=== PATIENT | male | born 1950 | race Caucasian/White ===

== ENCOUNTER 2021-01-03 13:40 | Inpatient (IN) | payer OTHER, MEDICARE, BC ==
[~2021-01-03] VITALS: Ht 182.9 cm; Wt 70.5 kg
[2021-01-03 14:31] LABS: BASOPHILS % (AUTO) 0.1 % (0-1); EOSINOPHILS % (AUTO) 0.2 % (0-6); HEMOGLOBIN 16.3 g/dl (14.0-17.9); LYMPHOCYTES # (AUTO) 0.8 X10'3 (1.1-4.8); LYMPHOCYTES % (AUTO) 15.1 % (21-51); MEAN CORPUSCULAR HEMOGLOBIN 30.3 PG (27.0-31.0); MEAN CORPUSCULAR HGB CONC 34.6 g/dL (33.0-36.5); MEAN CORPUSCULAR VOLUME 87.6 FL (78-98); MONOCYTES # (AUTO) 0.7 X10'3 (0-0.9); NEUTROPHILS % (AUTO) 71.6 % (42-75); PLATELET COUNT 218 X10'3 (140-440); RED BLOOD COUNT 5.36 X10'6 (4.70-6.10); RED CELL DISTRIBUTION WIDTH 13.2 % (11.5-14.5); WHITE BLOOD COUNT 5.6 X10'3 (4.5-11.0)
[2021-01-03 14:45] LABS: ALANINE AMINOTRANSFERASE 44 U/L (12-78); ALBUMIN 4.1 G/DL (3.4-5.0); ALBUMIN/GLOBULIN RATIO 1.1 (1.1-1.5); ALKALINE PHOSPHATASE 80 IU/L (46-116); ANION GAP 17 (8-16); ASPARTATE AMINO TRANSFERASE 30 U/L (10-37); BILIRUBIN,TOTAL 1.3 MG/DL (0.1-1.0); BLOOD UREA NITROGEN 14 MG/DL (7-18); BUN/CREATININE RATIO 10.9 (5.4-32.0); CALCIUM 9.7 MG/DL (8.5-10.1); CHLORIDE 92 MMOL/L (99-107); CREATININE 1.28 MG/DL (0.60-1.10); POTASSIUM 4.2 MMOL/L (3.5-5.1); SODIUM 129 MMOL/L (135-145); TOTAL CARBON DIOXIDE 19.6 MMOL/L (24-32); TOTAL PROTEIN 7.9 G/DL (6.4-8.2); eGFR 55 ML/MIN
[2021-01-03 14:49] LABS: GLUCOSE 475 MG/DL (70-104)
--- NOTE | 2021-01-03 14:51 | NUR ---
bg [address] KELLY aware
--- NOTE | 2021-01-03 15:06 | NUR ---
PT IS 70 YO MALE REFERRED TO ER FROM [place] TO R/O DM, PT HAS LOST 50LB IN 4 1/2MONTHS, INCREASED THIRST, INCREASED NEED TO URINATE, DIZZINESS OFF AND ON, BLOOD SUGAR IS "400 SOMETHING", PT IS RESTING QUIETLY ON GURNEY, WAITING TO BE EVALUATED BY PROVIDER
[2021-01-03] MEDS ORDERED: normal saline 1000ML IV soln IVB ONE (15:15)
[2021-01-03] MEDS ORDERED: insulin regular, human U-100 3ml vial - multi-dose SQ ONE (15:15)
--- NOTE | 2021-01-03 15:17 | NUR ---
PROVIDER AT BEDSIDE TO EVALUATE PT
--- NOTE | 2021-01-03 15:41 | NUR ---
RT AT BEDSIDE TO DRAW ABG, 1ST LITER NS INFUSING W/O
[2021-01-03 15:50] LABS: ABG HCO3 16.2 mmol/L (22.0-26.0); ABG OXYGEN SATURATION 96.8 % (94-97); ABG PCO2 (T) 24.6 mmHg (35.0-48.0); ABG PO2 (T) 90.8 mmHg (75.0-100.0); ALLEN'S TEST POSITIVE; FCOHb 0.6 % (0.0-3.9); FMetHb 0.1 % (0.0-1.5); FO2Hb 96.1 % (94-97); TOTAL HEMOGLOBIN 14.4 G/dl (14.0-18.0)
[2021-01-03] MEDS ORDERED: DOXA2TAB46 PO (16:08)
[2021-01-03] MEDS ORDERED: PANT40TA54 PO (16:13)
[2021-01-03] MEDS ORDERED: FINA5TAB11 PO (16:13)
[2021-01-03] MEDS ORDERED: LEVO100T9 PO (16:13)
[2021-01-03] MEDS ORDERED: [UNRECOGNIZED DRUG - CODE] PO (16:13)
[2021-01-03] MEDS ORDERED: MIRT-116 PO (16:13)
[2021-01-03] MEDS ORDERED: TRAZ-256 PO (16:17)
[2021-01-03] MEDS ORDERED: CHOL500049 PO (16:17)
[2021-01-03] MEDS ORDERED: MULT-1085 PO (16:18)
[2021-01-03] MEDS ORDERED: ARTIFICIAL SALIVA PO (16:20)
--- NOTE | 2021-01-03 17:02 | NUR ---
PT HAS RECEIVED 2 LITERS NS, BLOOD SUGAR 335, WAITING TO BE EVALUATED
[2021-01-03] MEDS ORDERED: potassium Cl 40MEQ/1/2NS 520ml 520 ML IV PRN ×2 (18:15)
[2021-01-03] MEDS ORDERED: ondansetron/PF 4mg/2ml inj IV PRN (18:15)
[2021-01-03] MEDS ORDERED: magnesium Cl slow-release 64mg tablet PO PRN (18:15)
[2021-01-03] MEDS ORDERED: magnesium 4gm in 100ml NS 100 ML IV PRN (18:15)
[2021-01-03] MEDS ORDERED: potassium Cl 20 mEq SR tablet PO PRN (18:15)
[2021-01-03] MEDS ORDERED: magnesium 2GM in 50ml NS 50 ML IV PRN (18:15)
[2021-01-03] MEDS ORDERED: acetaminophen 325mg tablet PO PRN (18:15)
[2021-01-03] MEDS ORDERED: dextrose ORAL solution 15 GM/59 ML bottle PO PRN ×2 (18:25)
[2021-01-03] MEDS ORDERED: dextrose 50%-water 50ml dispensing syringe IV PRN ×2 (18:25)
[2021-01-03] MEDS ORDERED: MESSAGE TO PHARMACY PO ONE (18:25)
[2021-01-03] MEDS ORDERED: glucagon, human recombinant 1mg kit SUBCUT PRN (18:25)
[2021-01-03] MEDS ORDERED: ARTIFICIAL SALIVA PO PRN (18:25)
[2021-01-03 18:56] LABS: CLARITY,URINE CLEAR (Clear); COLOR,URINE YELLOW (Yellow); GLUCOSE, URINE >=1000 mg/dl (Neg); KETONES,URINE >=80 mg/dl (Neg); LEUKOCYTE ESTERASE ,URINE NEGATIVE (Neg); NITRITES, URINE NEGATIVE (Neg); OCCULT BLOOD,URINE TRACE-INTACT (Neg); PROTEIN,URINE NEGATIVE (Neg); UROBILINOGEN,URINE 0.2 E.U/dL (0.2-1.0)
[2021-01-03 19:00] LABS: UA COLLECTION TYPE URINAL
[2021-01-03 19:12] LABS: BACTERIA,URINE NONE SEEN /HPF (Neg); SQUAMOUS EPITHELIAL CELL,UR NONE SEEN /LPF (FEW); WBC,URINE NONE SEEN /HPF (0-4)
[2021-01-03] MEDS: normal saline 1000ml 1,000 ML IV SCH (19:23)
[2021-01-03] MEDS: K and/or MAG REPLACEMENT MC SCH (20:00)
--- NOTE | 2021-01-03 20:21 | NUR ---
attempted report, nurse will call back
[2021-01-03 20:37] LABS: HEMOGLOBIN A1C > 14.0 % (4.5-6.2)
--- NOTE | 2021-01-03 20:45 | NUR ---
Patient in room PCU 3016. I have received report from JESSE Cavazos and had the opportunity to ask questions and assume patient care.
[2021-01-03] MEDS ORDERED: insulin glargine (Lantus) pen - multi-dose SQ SCH (21:00)
[2021-01-03] MEDS: lactose-reduced food (Ensure High Protein) 237ml bottle PO SCH (21:00)
[2021-01-03] MEDS ORDERED: traZODone 50mg tablet PO SCH (21:00)
[2021-01-03] MEDS ORDERED: doxazosin mesylate 2mg tablet PO SCH (21:00)
[2021-01-03 21:20] VITALS: BP 109/53
[2021-01-03] MEDS: insulin Lispro (HumaLOG) vial - multi-dose SQ SCH (21:53)
[2021-01-04 02:00] VITALS: BP 105/50
[2021-01-04] MEDS: normal saline 1000ml 1,000 ML IV SCH (04:28)
[2021-01-04 06:00] VITALS: BP 96/59
--- NOTE | 2021-01-04 06:13 | NUR ---
Problems reprioritized. Patient report given, questions answered & plan of care reviewed with JESSE Chandra.
--- NOTE | 2021-01-04 06:17 | NUR ---
Patient in room PCU 3016. I have received report from Mini MOLINA and had the opportunity to ask questions and assume patient care.
[2021-01-04 07:15] LABS: BASOPHILS % (AUTO) 0.3 % (0-1); EOSINOPHILS % (AUTO) 0.9 % (0-6); HEMATOCRIT 37.3 % (42.0-52.0); LYMPHOCYTES # (AUTO) 0.6 X10'3 (1.1-4.8); LYMPHOCYTES % (AUTO) 16.9 % (21-51); MEAN CORPUSCULAR HEMOGLOBIN 30.2 PG (27.0-31.0); MEAN CORPUSCULAR VOLUME 86.4 FL (78-98); MEAN PLATELET VOLUME 8.5 FL (7.4-10.4); MONOCYTES # (AUTO) 0.6 X10'3 (0-0.9); MONOCYTES % (AUTO) 18.2 % (2-12); NEUTROPHILS # (AUTO) 2.2 X10'3 (1.8-7.7); NEUTROPHILS % (AUTO) 63.7 % (42-75); PLATELET COUNT 170 X10'3 (140-440); RED BLOOD COUNT 4.31 X10'6 (4.70-6.10); RED CELL DISTRIBUTION WIDTH 13.4 % (11.5-14.5); WHITE BLOOD COUNT 3.4 X10'3 (4.5-11.0)
[2021-01-04 07:30] LABS: ALBUMIN 2.9 G/DL (3.4-5.0); ANION GAP 11 (8-16); BLOOD UREA NITROGEN 9 MG/DL (7-18); BUN/CREATININE RATIO 9.3 (5.4-32.0); CALCIUM 8.3 MG/DL (8.5-10.1); CHLORIDE 102 MMOL/L (99-107); CREATININE 0.97 MG/DL (0.60-1.10); GLUCOSE 251 MG/DL (70-104); MAGNESIUM 1.7 MG/DL (1.5-2.4); POTASSIUM 3.4 MMOL/L (3.5-5.1); SODIUM 136 MMOL/L (135-145); TOTAL CARBON DIOXIDE 22.8 MMOL/L (24-32); eGFR 76 ML/MIN
[2021-01-04] MEDS ORDERED: multivitamins, therapeutics tablet PO SCH (08:00)
[2021-01-04] MEDS ORDERED: finasteride 5mg tablet PO SCH (08:00)
[2021-01-04] MEDS ORDERED: pantoprazole 40mg Tablet.DR PO SCH (08:00)
[2021-01-04] MEDS ORDERED: levoTHYROXINE 100mcg tablet PO SCH (08:00)
[2021-01-04] MEDS: K and/or MAG REPLACEMENT MC SCH (08:00)
[2021-01-04] MEDS: lactose-reduced food (Ensure High Protein) 237ml bottle PO SCH ×2 (08:33→12:58)
[2021-01-04] MEDS: insulin Lispro (HumaLOG) vial - multi-dose SQ SCH ×2 (09:29→14:10)
[2021-01-04] MEDS: potassium Cl 20 mEq SR tablet PO PRN ×2 (09:35→12:58)
[2021-01-04 11:00] VITALS: BP 95/54
[2021-01-04] MEDS ORDERED: GLYB2.5T4 PO (11:16)
[2021-01-04] MEDS ORDERED: METF1000 PO (11:16)
--- NOTE | 2021-01-04 12:34 | NUR ---
RE: Jose Alfredo Richardson [id number] Need signature for discharge medication reconciliation to send to [place] pharmacy. Thanks, Adeola MOLINA Sent to MD Arvizu
--- NOTE | 2021-01-04 14:19 | NUR ---
Discharge teaching done with patient and family. Verbally confirmed understanding. Prescription faxed to [place] pharmacy and copy given to patient and placed in chart. Discharge paperwork signed, copied and given to patient. IV access discontinued with no complications. Tele discontinued and given to tele monitor. All belonging with patient. Patient dressed and awaiting transport to [facility].
--- NOTE | 2021-01-04 14:22 | NUR ---
DM consult: Pt newly diagnosed with T2DM, current A1c >14.0%. Pt seen at bedside with sister present provided with written DM education with thorough verbal review. RD discussed foods that contain carbs, meal frequency, consistent carb intake, portion sizes, managing a low blood sugar, managing DM on sick days, reading the nutrition facts label, the role of exercise, understanding the A1c, and more. Pt verbalized understanding and expresses desire to obtain a referral for an track helper and manage his blood sugars. Pt states he previously was on Metformin about three years ago however discontinued it per his physician. All of patient's questions were answered at this time. RD contact information provided and pt encouraged to reach out for further questions. Pt pending discharge at this time. Will remain available. Addendum: 01/04/21 at [address] Amended: Links added.
[2021-01-07] MEDS ORDERED: ergocalciferol (vit D2) capsule 50,000 UNITS (1,250mcg) CAPSULE PO SCH (08:00)
== END 2021-01-04 14:25 | disposition home or self-care (01) | DRG 682 ==
LOC: ER 13:40 → ED HOLD 18:13 → PCU 3S 20:51
PROVIDERS: ADMIT Internal Medicine; ATTEND Internal Medicine
DX: N17.0 Acute kidney failure with tubular necrosis (principal); E11.10 Type 2 diabetes mellitus with ketoacidosis without coma; E87.1 Hypo-osmolality and hyponatremia; E03.9 Hypothyroidism, unspecified; E86.0 Dehydration; F32.9 Major depressive disorder, single episode, unspecified; G47.00 Insomnia, unspecified; K11.7 Disturbances of salivary secretion; E78.5 Hyperlipidemia, unspecified; K21.9 Gastro-esophageal reflux disease without esophagitis; G47.33 Obstructive sleep apnea (adult) (pediatric); F43.10 Post-traumatic stress disorder, unspecified; M10.9 Gout, unspecified; R35.0 Frequency of micturition; N40.1 Benign prostatic hyperplasia with lower urinary tract symptoms; Z85.01 Personal history of malignant neoplasm of esophagus; Z92.21 Personal history of antineoplastic chemotherapy; Z92.3 Personal history of irradiation; Z79.84 Long term (current) use of oral hypoglycemic drugs; Z88.8 Allergy status to other drugs, medicaments and biological substances; Z79.899 Other long term (current) drug therapy; Z98.52 Vasectomy status
CPT/HCPCS: 36415; 36600; 80048; 80053; 81001; 82803; 82948; 83036; 83735; 85018; 85025; 87081; 96372; 99285; G0378; J1815; J7030